=== PATIENT | male | born 1955 | race Caucasian/White ===

== ENCOUNTER 2020-03-27 10:38 | Day surgery (SDC) | payer OTHER ==
[~2020-03-27] VITALS: Ht 180.3 cm; Wt 95.0 kg
[2020-03-27 11:25] VITALS: BP 127/74
[2020-03-27] MEDS ORDERED: ENAL10TA PO (11:25)
[2020-03-27] MEDS ORDERED: EZET1TAB26 PO (11:25)
[2020-03-27] MEDS ORDERED: ROPINIROLE PO (11:25)
[2020-03-27] MEDS ORDERED: CARBIDOPA-LEVODOPA PO (11:25)
[2020-03-27] MEDS ORDERED: METFORMIN PO (11:25)
[2020-03-27] MEDS ORDERED: CARVEDILOL PO (11:25)
[2020-03-27] MEDS ORDERED: ASPI-496 PO (11:25)
[2020-03-27 11:53] LABS: ANION GAP 5 mmol/L (5-15); CALCIUM 8.8 mg/dL (8.5-10.1); CHLORIDE 105 mmol/L (98-107); CREATININE 0.98 mg/dL (0.7-1.3)
[2020-03-27 11:56] LABS: BASOPHILS # (AUTO) 0.07 x10^3/uL (0-0.1); BASOPHILS % (AUTO) 1 % (0-1); EOSINOPHILS # (AUTO) 0.21 x10^3/uL (0-0.4); EOSINOPHILS % (AUTO) 3 % (1-7); LYMPHOCYTES # (AUTO) 1.67 x10^3/uL (1-3.4); LYMPHOCYTES % (AUTO) 23 % (22-44); MD NO; MEAN CORPUSCULAR HEMOGLOBIN 30.3 pg (27.5-34.5); MEAN CORPUSCULAR HGB CONC 33.7 g/dL (33.2-36.2); MEAN CORPUSCULAR VOLUME 89.9 fL (81-97); MEAN PLATELET VOLUME 8.3 fL (7.4-10.4); MONOCYTES # (AUTO) 0.48 x10^3/uL (0.2-0.8); MONOCYTES % (AUTO) 7 % (2-9); NEUTROPHILS # (AUTO) 4.72 x10^3/uL (1.8-6.8); NEUTROPHILS % (AUTO) 66 % (42-75); PLATELET COUNT 223 x10^3/uL (130-400); RED BLOOD COUNT 4.71 x10^6/uL (4.38-5.82); RED CELL DISTRIBUTION WIDTH 13.1 % (9.4-14.8)
[2020-03-27] MEDS ORDERED: LIDOCAINE-MPF 1%, 5ML ONE (13:31)
[2020-03-27] MEDS ORDERED: FENTANYL PF 100 MCG/2ML ONE (13:31)
[2020-03-27] MEDS ORDERED: VERAPAMIL 2.5 MG/ML, 2ML ONE (13:31)
[2020-03-27] MEDS ORDERED: MIDAZOLAM 1 MG/ML, 5ML ONE (13:31)
[2020-03-27] MEDS ORDERED: BIVALIRUDIN 250 MG ONE (13:31)
[2020-03-27] MEDS ORDERED: HEPARIN 1,000 UNITS/ML, 10ML ONE (13:31)
[2020-03-27] MEDS ORDERED: TICAGRELOR 90 MG TABLET ONE (13:31)
[2020-03-27] MEDS ORDERED: SODIUM CHLORIDE 0.9% 1,000 ML IV SCH (14:10)
== END 2020-03-27 16:15 | disposition home or self-care (01) ==
LOC: CACL 10:38
PROVIDERS: ATTEND Internal Medicine Cardiovascular Disease
DX: I20.0 Unstable angina (principal); I10 Essential (primary) hypertension; E11.9 Type 2 diabetes mellitus without complications; E78.2 Mixed hyperlipidemia; Z79.82 Long term (current) use of aspirin; Z79.84 Long term (current) use of oral hypoglycemic drugs; Z79.899 Other long term (current) drug therapy
CPT/HCPCS: 36415; 80048; 85025; 93458; 99156; C1769; C1894; J1644; J2250; J3010; Q9967; J0583